=== PATIENT | male | born 1945 | race Caucasian/White ===

== ENCOUNTER → 2016-09-29 12:13 | Outpatient (CLI) | payer MEDICARE | END | disposition home or self-care (01) | LOC: D.CT 12:13 | DX: R19.00 Intra-abdominal and pelvic swelling, mass and lump, unspecified site (principal) ==

== ENCOUNTER 2016-11-30 10:50 | Emergency (ER) | payer MEDICARE ==
[2016-11-30 11:41] LABS: BASOPHILS 0.3 % (0-2); EOSINOPHILS 2.1 % (0-7); HEMATOCRIT 41.9 % (42.0-54.0); HEMOGLOBIN 14.3 g/dL (13.5-17.5); IMMATURE GRANULOCYTES 0.4 % (0-5); LYMPHOCYTES 27.3 % (15-50); MCH 30.1 pg (26.0-34.0); MCHC 34.1 g/dL (31.0-37.0); MCV 88.2 fL (80.0-100.0); MEAN PLATELET VOLUME 10.4 fL (7.4-10.4); MONOCYTES 8.3 % (2-11); NEUTROPHILS 61.6 % (40-80); RBC 4.75 10x6/uL (4.20-6.10); RDW 13.8 % (11.5-14.5); WBC 11.8 10x3/uL (4.8-10.8)
[2016-11-30 12:08] LABS: ALBUMIN 3.5 g/dL (3.4-5.0); ALKALINE PHOSPHATASE 69 U/L (46-116); ALT (SGPT) 24 U/L (10-68); BILIRUBIN - TOTAL 1.32 mg/dL (0.2-1.3); CALC OSMOLALITY 282 mosm/kg (275-300); CALCIUM 9.2 mg/dL (8.5-10.1); CARBON DIOXIDE 23.1 mmol/L (21.0-32.0); CHLORIDE - SERUM 107 mmol/L (98-107); GLUCOSE 103 mg/dL (74-106); POTASSIUM - SERUM 3.4 mmol/L (3.5-5.1); PROTEIN - SERUM 7.6 g/dL (6.4-8.2); SODIUM 141 mmol/L (136-145); UREA NITROGEN 18 mg/dL (7-18); eGFR NON AFRICAN AMERICAN 78 mL/min (90-120)
[2016-11-30 12:10] LABS: PLATELET COUNT 183 10x3/uL (130-400)
[2016-11-30 12:13] LABS: CREATINE KINASE 95 UL (21-232); PRO BNP 106 pg/mL (0-125)
[2016-11-30 12:14] LABS: TROPONIN-I < 0.017 ng/mL (0.000-0.060)
== END 2016-11-30 13:00 | disposition home or self-care (01) ==
LOC: D.ER 10:50
PROVIDERS: Emergency Medicine
DX: I49.8 Other specified cardiac arrhythmias (principal); R42 Dizziness and giddiness; M18.12 Unilateral primary osteoarthritis of first carpometacarpal joint, left hand; I10 Essential (primary) hypertension; Z95.1 Presence of aortocoronary bypass graft

== ENCOUNTER 2017-07-02 13:00 | Emergency (ER) | payer OTHER ==
[2017-07-02 13:35] LABS: HEMATOCRIT 44.2 % (42.0-54.0); MCH 30.7 pg (26.0-34.0); MCHC 33.9 g/dL (31.0-37.0); MCV 90.4 fL (80.0-100.0); MEAN PLATELET VOLUME 9.8 fL (7.4-10.4); PLATELET COUNT 148 10x3/uL (130-400); RBC 4.89 10x6/uL (4.20-6.10); WBC 7.1 10x3/uL (4.8-10.8)
[2017-07-02 13:49] LABS: ALBUMIN 4.1 g/dL (3.4-5.0); ANION GAP 13.8 mmol/L (8-16); BILIRUBIN - TOTAL 1.12 mg/dL (0.2-1.3); CALCIUM 9.5 mg/dL (8.5-10.1); CARBON DIOXIDE 28.3 mmol/L (21.0-32.0); CREATININE - SERUM 1.4 mg/dL (0.6-1.3); POTASSIUM - SERUM 4.1 mmol/L (3.5-5.1)
[2017-07-02 14:01] LABS: TROPONIN-I 0.016 ng/mL (0.000-0.060)
[2017-07-02 14:07] LABS: BASOPHILS 1 % (0-2); LYMPHOCYTES 14 % (15-50); MONOCYTES 11 % (2-11); NEUTROPHILS 68 % (40-80); PLATELET ESTIMATE NORMAL
== END 2017-07-02 16:23 | disposition home or self-care (01) ==
LOC: D.ER 13:00
PROVIDERS: Family Medicine
DX: J11.1 Influenza due to unidentified influenza virus with other respiratory manifestations (principal); N28.9 Disorder of kidney and ureter, unspecified; I10 Essential (primary) hypertension

== ENCOUNTER 2017-07-06 14:40 | Emergency (ER) | payer OTHER ==
[2017-07-06 17:16] LABS: BASOPHILS 0.3 % (0-2); EOSINOPHILS 0.6 % (0-7); HEMATOCRIT 43.2 % (42.0-54.0); HEMOGLOBIN 15.1 g/dL (13.5-17.5); IMMATURE GRANULOCYTES 0.1 % (0-5); MCH 30.9 pg (26.0-34.0); MCV 88.5 fL (80.0-100.0); MEAN PLATELET VOLUME 10.5 fL (7.4-10.4); MONOCYTES 10.6 % (2-11); NEUTROPHILS 67.4 % (40-80); PLATELET COUNT 142 10x3/uL (130-400); RBC 4.88 10x6/uL (4.20-6.10); RDW 13.7 % (11.5-14.5); WBC 7.8 10x3/uL (4.8-10.8)
[2017-07-06 17:47] LABS: ALBUMIN 3.7 g/dL (3.4-5.0); ANION GAP 15.5 mmol/L (8-16); BILIRUBIN - TOTAL 1.07 mg/dL (0.2-1.3); CALCIUM 9.5 mg/dL (8.5-10.1); CARBON DIOXIDE 26.9 mmol/L (21.0-32.0); CREATININE - SERUM 1.1 mg/dL (0.6-1.3); POTASSIUM - SERUM 4.4 mmol/L (3.5-5.1); PROTEIN - SERUM 7.8 g/dL (6.4-8.2)
== END 2017-07-06 19:36 | disposition home or self-care (01) ==
LOC: D.ER 14:40
PROVIDERS: Emergency Medicine
DX: B34.9 Viral infection, unspecified (principal); R53.1 Weakness; I10 Essential (primary) hypertension; F17.200 Nicotine dependence, unspecified, uncomplicated

== ENCOUNTER 2018-11-07 05:30 | Day surgery (SDC) | payer OTHER ==
[2018-11-06 09:11] LABS: HEMATOCRIT 40.7 % (42.0-54.0); HEMOGLOBIN 14.2 g/dL (13.5-17.5); MCH 31.1 pg (26.0-34.0); MCHC 34.9 g/dL (31.0-37.0); MCV 89.1 fL (80.0-100.0); MEAN PLATELET VOLUME 9.7 fL (7.4-10.4); RBC 4.57 10x6/uL (4.20-6.10); RDW 14.3 % (11.5-14.5); WBC 8.5 10x3/uL (4.8-10.8)
[~2018-11-07] VITALS: Ht 167.6 cm; Wt 78.9 kg
[~2018-11-07 05:30] MED LIST: BAYER CHEWABLE81 MG PO; CENTRUM SILVER1 EAC3 PO; LIPITOR40 MG PO; OMEPRAZOLE20 M1 PO; ZESTRIL10 MG PO
[2018-11-07 06:54] VITALS: BP 105/65; Ht 167.6 cm; Wt 78.9 kg
--- NOTE | 2018-11-07 09:20 | NUR ---
RECEIVED FROM SURGERY. FAMILY NOT AT BEDSIDE. FL TRAY BROUGHT TO PATIENT.
--- NOTE | 2018-11-07 09:23 | NUR ---
DR DUNLAP TALKING WITH PATIENT.
--- NOTE | 2018-11-07 09:50 | NUR ---
TOLERATED FL TRAY. NO FAMILY AT BEDSIDE. NO URGE TO VOID AT THIS TIME.
--- NOTE | 2018-11-07 10:25 | NUR ---
AMBULATED TO BATHROOM. VOIDED WITHOUT DIFFICULTY.
--- NOTE | 2018-11-07 10:50 | NUR ---
IV DC'D WITH CATHETER INTACT. WRITTEN AND VERBAL DC INST. GIVEN TO PT. VERBALIZED UNDERSTANDING.
--- NOTE | 2018-11-07 12:55 | OP ---
PATIENT NAME: ARACELIS CRUMP MEDICAL RECORD: [id number] :41 LOCATION:.[facility] ADMISSION DATE: SURGEON: DAVE DUNLAP MD DATE OF OPERATION: 11/07/2018 SURGEON: Dave Dunlap MD ANESTHESIA: TIVA by Bayron Bravo CRNA. DIAGNOSES: Abnormal prostate on digital rectal examination. PSA 0.88. History of Agent Hendry exposure. PROCEDURE: Cystoscopy, transrectal ultrasound, and prostate biopsy. FINDINGS: On cystoscopy, previous TUR of the prostate. There was regrowth of the left lateral lobe, but it is not obstructive. There are single ureteral orifices on each side. No bladder tumors were seen. On transrectal ultrasound, he has a broad flat prostate, which is 46.6 grams in size. There is a TUR defect visible and there are hypoechoic areas seen. BLOOD LOSS: Minimal. CLINICAL HISTORY: This is a 73-year-old man who was exposed to Agent Hendry in [place]. He has an abnormal nodularity of the prostate on [place]. He had a TURP in 2006 at the [facility] in [place], [place]. Currently, he has minimal voiding symptoms. He did have a prostate biopsy in 2012 in [place], [place] and this is benign. He is a smoker one-half pack per day since age 17 and he still smokes. Because of the exposure to Agent Hendry in [place] and his digital rectal examination revealing a nodular hard and scarred prostate, we are obtaining a prostate biopsy. I will also look in to be sure that there are no lesions in the bladder. He is not allergic to any medications. 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 DESCRIPTION OF PROCEDURE: The patient was given IV sedation. He was placed in lithotomy position and prepped and draped. A 17-Frisian cystoscope with 30-degree lens was used for visualization. Findings are as outlined above. The bladder was then emptied through the cystoscope sheath and the scope was removed. The transrectal ultrasound probe was then introduced and prostate size measurements were obtained. Findings are as outlined above. Sextant biopsies were obtained with at least 3 cores from each sextant. Once all the specimens were obtained and the procedure was terminated. The patient was brought back to the preoperative holding area. I will see him in followup next week to review his pathology results with him. TRANSINT:[id number] Voice Confirmation ID: [id number] DOCUMENT ID: [id number] OPERATIVE REPORT [id number] ARACELIS CRUMP ROBERT S MD at 1255 CC: [id number] DICTATION DATE: 11/07/18922 DOLL DRESSER: 11/07/18 1159 [facility] 11/07/18 [place] [id number]
== END 2018-11-07 10:55 | disposition home or self-care (01) ==
LOC: D.OPS 05:30 → D.PAN 08:00 → D.OPS 08:00 → D.PAN 08:05 → D.OPS 10:55 → D.PAN 12:30
PROVIDERS: Anesthesiology; ATTEND Urology
DX: N40.2 Nodular prostate without lower urinary tract symptoms (principal); Z77.098 Contact with and (suspected) exposure to other hazardous, chiefly nonmedicinal, chemicals; Z01.812 Encounter for preprocedural laboratory examination; F17.210 Nicotine dependence, cigarettes, uncomplicated

== ENCOUNTER → 2020-12-16 08:18 | Outpatient (CLI) | payer OTHER ==
[2020-05-03 14:19] VITALS: BMI 23.9
[~2020-12-16 08:18] MED LIST changes: +CARDIZEM30 MG PO; +IPRAT-ALBUT 0.5-3 ML UPD; +LEVAQUIN750 MG PO; +MUCINEX600 MG PO; +OMNICEF300 MG PO; +TESSALON PERLE100 MG PO; +VIBRAMYCIN 100100 MG PO
== END | disposition home or self-care (01) ==
LOC: D.HCCARDIO 08:18
PROVIDERS: ATTEND Internal Medicine Cardiovascular Disease
DX: I25.10 Atherosclerotic heart disease of native coronary artery without angina pectoris (principal)